=== PATIENT | female | born 1975 | race Caucasian/White ===

== ENCOUNTER 2023-01-16 04:50 | Day surgery (SDC) | payer BC ==
[2023-01-15 10:41] VITALS: BMI 28.6
[2023-01-16 09:36] VITALS: TEMP 98.4
[2023-01-16 11:59] VITALS: BP 100/56; PULSE 56; RESP 18
== END 2023-01-16 11:59 | disposition home or self-care (01) ==
LOC: JASU-ENDO 04:50
PROVIDERS: ATTEND Student in an Organized Health Care Education/Training Program
PROC: 0DBP8ZX Excision of Rectum, Via Natural or Artificial Opening Endoscopic, Diagnostic (ICD-10-PCS; 2023-01-16)
PROC: 0DBM8ZX Excision of Descending Colon, Via Natural or Artificial Opening Endoscopic, Diagnostic (ICD-10-PCS; principal; 2023-01-16 10:30)
DX: K63.5 Polyp of colon (principal); K62.89 Other specified diseases of anus and rectum; K64.8 Other hemorrhoids
CPT/HCPCS: 81025; 88305-TC